=== PATIENT | male | born 1960 | race Two or more races ===

== ENCOUNTER 2018-05-19 07:28 | Outpatient (CLI) | payer OTHER ==
[~2018-05-19 07:28] MED LIST: AMOX1TAB12 PO; ZYRTEC10 MG PO
== END 2018-05-19 07:51 | disposition home or self-care (01) ==
LOC: LAB 07:28
DX: I10 Essential (primary) hypertension (principal); E11.9 Type 2 diabetes mellitus without complications; E03.8 Other specified hypothyroidism; E78.2 Mixed hyperlipidemia; M81.0 Age-related osteoporosis without current pathological fracture